=== PATIENT | male | born 2000 | race Caucasian/White ===

== ENCOUNTER 2024-11-06 14:04 | Outpatient (CLI) | payer OTHER, SELFPAY ==
--- NOTE | ~2024-11-06 | MR_ITS ---
MRI of the lumbar spine Clinical History: Back pain Technique: Axial T2-weighted images, and sagittal T1-weighted, T2-weighted, and and T2 fat-sat images were acquired. Findings: There is no fracture or subluxation of the lumbar spine. Vertebral bodies maintain normal height and alignment. No bone marrow signal abnormality seen. At L1-L2, L2-L3, L3-L4, intervertebral discs maintain normal signal and position. No disc bulge or herniation at these levels. No spinal canal stenosis or neural foraminal narrowing at these levels. At L4-L5, there is mild disc desiccation with minimal disc bulge. No spinal canal stenosis or neural foraminal narrowing. At L5-S1, there is no disc bulge or herniation. No spinal canal stenosis or neural foraminal narrowing. Paravertebral soft tissues are unremarkable. Impression: Minimal degenerative spondylitic change at L4-L5, as above. Reviewed, dictated and finalized at [facility]. Impression: Minimal degenerative spondylitic change at L4-L5, as above.
--- OUTSIDE RECORDS SUMMARY | 2024-11-06 14:19 | XMS_ITS | Continuity of Care Document ---
Author Name [facility] Organization [facility] Care Team Providers Care Accounting Manager Controller Name Role Phone [facility] Unavailable Unavailable Allergies, Adverse Reactions, Alerts Combined list of allergies from Department of Defense and Veterans Affairs facilities. It does not include entries that were removed or entered in error. Substance Category Reaction Severity Reaction type Status Date Reported Comments Source No Known Allergies Drug allergy (disorder) active 06/02/2020 Aaron GALLEGOS [facility] Immunizations Combined list of available immunizations from the Department of Defense and Veterans Affairs facilities. Immunization Series Date Given Administered By Site Reaction Lot Number CVX Code Drug Powdered Metal Supervisor Status Comments Source COVID-19, mRNA, LNP-S, PF, 30 mcg/0.3 mL dose 2020 [employer] [place] (PFR) Not Given COVID-19, mRNA, LNP-S, PF, 30 mcg/0.3 mL dose DoD COVID-19, mRNA, LNP-S, PF, 30 mcg/0.3 mL dose 2020 [employer] [place] (PFR) Not Given COVID-19, mRNA, LNP-S, PF, 30 mcg/0.3 mL dose DoD hepatitis B vaccine, adult dosage 1 2020 JACINTO EMANUEL I [id number] [employer] (SKB) complet ed hepatitis B vaccine, adult dosage DoD Influenza, injectable, quadrivalent, preservative free 1 2019 CORI MACIEL [id number] 150 Seqirus (SEQ) complet ed Influenza , injectabl e, quadrival ent, preservat dominique free DoD measles, mumps and rubella virus vaccine 1 2019 UNK 03 Unknown (UNK) Not Given measles, mumps and rubella virus vaccine DoD hepatitis A vaccine, adult dosage 1 2019 UNK 52 Unknown (UNK) Not Given hepatitis A vaccine, adult dosage DoD Encounters Combined list of: 1) Encounters from Department of Veterans Affairs facilities going backup to the last 18 months, not all VA inpatient encounters are included; 2) Encounters from the Department of Defense facilities going backup to 280 months. Location Location Details Encounter Type Encounter Number Reason For Visit Attending Provider ADM Date DC Date Status Disposition Source [facility](IEP Primary Care) OUTPATIENT [id number] covid test FLORIAN CORNELIUS 10/21 Released w/o Limitations [facility](I EP Primary Care) [facility](IEP Optometry ) OUTPATIENT [id number] VALERIA BYRD 10/22 Released w/o Limitations [facility](I EP Optomet ry) [facility]) OUTPATIENT [id number] D 4 2-39 B Lower Leg EMILIANO HAQUELEE 12/03 Released with Work/Duty Limitations [facility](T [facility] Physica l Therapy ) [facility](IEP Primary Care) OUTPATIENT [id number] Notes Entered by: ROHAN COOPER 09 Feb 2020 0949 ------- ------- ------- ------- -- IET MONET MADRID 02/08 Released w/o Limitations [facility](I EP Primary Care) JULIO James(ME Student [facility]) OUTPATIENT [id number] BRIANDA QUINTANILLA 06/02 Released w/o Limitations JULIO Vital(ME [facility]) [facility](IEP Primary Care) OUTPATIENT [id number] Notes Entered by: Tammy GUAMAN 29 Jun 2020 0822 ------- ------- ------- ------- -- DEF JOHANNE RUIZ 06/29 Released w/o Limitations [facility](I EP Primary Care) Procedures Combined list of: 1) Procedures from Department of Veterans Affairs facilities going back up to thelast 18 months, not all VA non-surgical procedures are included; 2) All procedures from the Department of Defense facilities. Procedure Procedure Type Code Date Perfomer Comments [facility] e Immunization Administration One Vaccine Immunization Administration One Vaccine 10476 BRIANDA HOPSON [facility] Ophthalmological New Patient Start Intermediate Level Care Ophthalmological New Patient Start Intermediate Level Care 54374 PRUE [facility] Fitting Monofocals (Not For Aphakia) [facility] Fitting Monofocals (Not For Aphakia) 63874 PRUE MEGHA I [facility] Determination Of Refractive State Determination Of Refractive State 08408 [facility] Physical Therapy Education Orthotics Training Physical Therapy Education Orthotics Training 35261 [facility] Foot, arch support, removable, premolded, longitudinal, each [facility] Immunization Administration Each Additional Vaccine Immunization Administration Each Additional Vaccine 49701 [facility] Vaccines Viral Polio, Inactivated (Salk) Vaccines Viral Polio, Inactivated (Salk) 20845 [facility] Vaccines Viral Varicella (Active) Vaccines Viral Varicella (Active) 15505 [facility] Immunization Admin Intranasal / Oral Each Additional Vaccine Immunization Admin Intranasal / Oral Each Additional Vaccine 24160 [facility] Vaccines Adenovirus Type 4 Live, For Oral Use Vaccines Adenovirus Type 4 Live, For Oral Use 11107 [facility] Vaccines Adenovirus Type 7 Live, For Oral Use Vaccines Adenovirus Type 7 Live, For Oral Use 73145 [facility] Tdap Vaccine Tdap Vaccine 71381 [facility] BRIEF EMOTIONAL/BEHAVIORAL ASSESSMENT (EG, DEPRESSION INVENTORY, ATTENTION-DEFICIT/HYP ERACTIVITY DISORDER [ADHD] SCALE), WITH SCORING AND DOCUMENTATION, PER STANDARDIZED INSTRUMENT 1 [facility] VARICELLA VIRUS VACCINE (RAMYA), LIVE, FOR SUBCUTANEOUS USE 1 [facility] TETANUS, DIPHTHERIA TOXOIDS AND ACELLULAR PERTUSSIS VACCINE (TDAP), WHEN ADMINISTERED TO INDIVIDUALS 7 YEARS OR OLDER, FOR INTRAMUSCULAR USE 0 [facility] FOOT, ARCH SUPPORT, REMOVABLE, PREMOLDED, LONGITUDINAL, EACH 0 [facility] DETERMINATION OF REFRACTIVE STATE 0 [facility] HEARING SERVICE, MISCELLANEOUS 0 DoD Social History Combined list of available smoking, tobacco, and other social history from Department of Defense and Veterans Affairs facilities. Social History Type Response Date Comment [facility] e This section is an empty social history section. DoD
--- OUTSIDE RECORDS SUMMARY | 2024-11-06 14:21 | XMS_ITS | Clinical Summary ---
Author Organization [employer] [facility] Address [address] [place] [address] Care Team Providers Care Technology Auditor Name Role Phone Unavailable Primary Care Provider Unavailabl e Medications predniSONE (DELTASONE) 20 mg tablet Take 1 tablet by mouth twice daily. 10 Tablet 12/14/2022 5:34 PM CDT 12/14/2022 Active triamcinolone acetonide (KENALOG) 0.1 % Cream Apply to the affected area twice daily as needed, do not use more than 14 days in a row. 30 Gram 12/14/2022 5:34 PM CDT 12/14/2022 Active Social History Tobacco Use Types Packs/Day Years Used Date Smoking Tobacco: Never Assessed Sex and Gender Information Value Date Recorded Sex Assigned at Not on file Legal Sex Male 5:09 PM CDT Gender Identity Not on file Sexual Orientation Not on file Plan of Treatment Health Maintenance Due Date Last Done Comments HPV VACCINES (1 - Male 3-dose series) 2016 DTAP/TDAP/TD VACCINES (1 - Tdap) 2020 HEPATITIS B VACCINES (1 of 3 - 19+ 3-dose series) 07/17 INFLUENZA VACCINE (#1) 2024 Insurance RX [employer] RX Member Subscriber Plan / Payer (Ef fective for All Dates) Name:Corona, Chad Relation to Subscriber:Self Name:ChloeChad Payer ID:Not on file Group ID:[id number] Type:RX Commercial Address: [address]
--- OUTSIDE RECORDS SUMMARY | 2024-11-06 14:21 | XMS_ITS | Clinical Summary ---
Author Organization [facility] Address [address] [place] [address] Care Team Providers Care Job Training Supervisor Name Role Phone Chay Oliveira MD Primary Care Provider [phone] Allergies No known active allergies Medications gabapentin (NEURONTIN) 100 MG capsule 1 (one) capsule by mouth three times daily, as needed 11/03/2024 Active HYDROcodone-gutierrez taminophen (NORCO) 10-325 MG tablet 1 (one) tablet by mouth three times daily, as needed 11/03/2024 Active tiZANidine (ZANAFLEX) 4 MG tablet 1 (one) tablet by mouth at bedtime 11/03/2024 Active methylPREDNISol one, DIPTI, (MEDROL DOSEPAK) 4 MG tablet TAKE TABLETS DIRECTED ON INSIDE OF THIS PACKAGE 11/03/2024 Active lidocaine 4 % patch Place 1 patch onto the skin daily. 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 Overview (01/04/2021): Added automatically from request for surgery [id number] Encounters Date Type Department Care Team Description 11/04/2024 5:34 PM CDT - 11/04/2024 6:43 PM CDT Emergency [facility] [address] [place] [address] Gil Recio MD Back Pain Discharge Disposition: Home or Self Care (Routine Discharge) 11/04/2024 Travel from Last 3 Months Social History Tobacco Use Types Packs/Day Years Used Date Smoking Tobacco: Never Smokeless Tobacco: Never Alcohol Use Standard Drinks/Week Comments Never 0 (1 standard drink = 0.6 oz pur e alcohol) Sex and Gender Information Value Date Recorded Sex Assigned at Male 11/04/2024 5:53 PM CDT Legal Sex Male 5:55 PM VIDEO GAME DEVELOPER Gender Identity Not on file Sexual Orientation Not on file Last Filed Vital Signs Vital Sign Reading Time Taken Comments Blood Pressure 138/90 11/04/2024 6:37 PM CDT Pulse 98 11/04/2024 5:39 PM CDT Temperature 36.5 C (97.7 F) 11/04/2024 5:39 PM CDT Respiratory Rate 20 11/04/2024 6:37 PM CDT Oxygen Saturation 97% 11/04/2024 6:40 PM CDT Inhaled Oxygen Concentration - - Weight 114.8 kg (253 lb) 11/04/2024 5:39 PM CDT Height 177.8 cm (5' 10) 11/04/2024 5:39 PM CDT Body Mass Index 36.3 11/04/2024 5:39 PM CDT Plan of Treatment Health Maintenance Due Date Last Done Comments Annual Physical 2004 DTaP, Tdap and Td Vaccines (6 - Tdap) 2012 10/19/2006, 09/04/2003, 02/04/2002, Additional history exists Meningococcal B Vaccine (1 of 2 - Standard) 2017 HPV Vaccines (2 - Male 3-dose series) 01/13/2019 12/16/2018 Hepatitis C 08/01/2019 Hepatitis B Vaccines (1 of 3 - 19+ 3-dose series) 2020 COVID-19 Vaccine (3 - season) 2023 08/26/2020, 08/05/2020 Meningococcal Vaccine Completed 12/16/2018, 015 Pneumococcal Vaccine: Pediatrics (0 to 5 Years) and At-Risk Patients (6 to 49 Years) Aged Out No longer eligible based on patient's age to complete this topic RSV Immunizations Under 20 Months Aged Out No longer eligible based on patient's [place] [id number] [employer] Care Teams Job Training Supervisor Relationship Specialty Start Date End Date Chay Oliveira MD [address] [place] [phone] PCP - General FAMILY PRACTICE 11/30/20
== END 2024-11-06 14:05 | disposition home or self-care (01) ==
LOC: CHSIMG 14:09
PROVIDERS: PCP Family Medicine; Visit Provider Family Medicine
DX: M54.50 Low back pain, unspecified (principal)
CPT/HCPCS: 72148

== ENCOUNTER 2024-11-11 08:29 | Outpatient (RCR) | payer OTHER, SELFPAY ==
--- NOTE | 2024-11-11 11:06 | PTOPEVAL1 ---
Assessment and note entered by Dunia Pollard DPT Evaluation Information Assessment Status Evaluation Diagnosis low back pain ICD-10 Condition Codes (PT) Pain in low back M54.50 Onset 11/06/24 Subjective Information Patient reports about 4 years ago he bent down to grab something and felt a pop in his back. He reports he has a bulging disc. He states that he has done PT in the past and has felt some relief. He reports that pain is across the low back and into B anterior hips. He reports that pain is worse with ambulating prolonged distances, getting into and out of the car, lifting objects and sleeping. He reports his goal is to decrease pain Reported Pain Level Pain Score 6: Self Report Assessment PT Clinical Summary Mr. Corona is a 24 year old male who presents to PT with low back and B hip pain. He demonstrates pain with lumbar ROM, decreased core strength and pain completing ambulation, house hold tasks and sleeping. He would benefit from skilled PT to address impairments and return to PLOF. Plan of Care Interventions Electrical Stimulation,Gait Training,Hot Pack/Cold Pack,Manual Therapy,Mechanical Traction,Patient/ Caregiver Education,Therapeutic Activities, Therapeutic Exercise PT Services Indicated Yes Treatment Frequency and 2x weekly for 10 visits Duration These treatments will address the objective and functional deficits as defined above. The patient will be advanced safely and appropriately in order for the patient to progress towards his/her prior level of function. Additional exercises will be introduced and as well as a comprehensive home exercise program upon discharge, if needed, ?to ensure carryover of functional gains achieved in the clinic. This treatment plan has been reviewed and agreement upon by the patient.
--- NOTE | 2024-12-18 10:17 | OPREHPOC ---
Outpatient Therapy Plan of Care This is a Multidisciplinary Plan of Care that may contain components documented by all disciplines (PT, OT, and ST.) PT Problem 1 PT Problem #1 Knowledge Deficit PT Goal 1 Goal / Goal Update Patient to demonstrate independence with HEP Target Visit 5 Progress Met PT Problem 2 PT Problem #2 Pain PT Goal 1 Goal / Goal Update 1. Patient to report highest pain at 2/10 Target Visit 10 Progress Not Met PT Problem 3 PT Problem #3 Impaired Strength PT Goal 1 Goal / Goal Update Patient to demonstrate 4+/5 core strength to return to lifting and completing house hold tasks at PLOF Target Visit 10 Progress Not Met PT Problem 4 PT Problem #4 Impaired Functional Mobility PT Goal 1 Goal / Goal Update 1. Patient to improve BackIndex by 20% 2. Patient to ambulate >30 minutes with no increase in back pain 3. Patient to demonstrate ability to lift 25# from floor to waist without increase in back pain Target Visit 10 Progress Not Met
--- NOTE | 2024-12-18 10:17 | PTOPDC ---
Assessment and note entered by Kandis Rosario, PT Evaluation Information Assessment Status Discharge Diagnosis low back pain ICD-10 Condition Codes (PT) Pain in low back M54.50 Onset 11/06/24 Subjective Information Pt reports feeling like PT hasn't helped. He got injections in his lower back (6 total) last week and feels like since getting them his pain has worsened. He states his pain is back to baseline levels around 4/10. He states he has a follow up next week to potentially get set up for an epidural injection. He continues to experience pain when in standing and ambulating, and he cannot stand more than 30 minutes at a time. He has continued to do his exercises at home and would like to keep trying on his own and discontinue therapy at this time. Reported Pain Level Pain Score 4: Self Report Assessment PT Clinical Summary Mr. Corona has attended 10 skilled PT visits for chronic LBP. Since beginning therapy he continues to have pain and has made little progress toward therapeutic goals addressing standing/walking tolerance and abdominal strength. He had recent injections and is following up with MD for an epidural injection this week. Due to lack of progress he will be discharged from skilled PT this date with [facility] to continue his HEP and continue following up with MD and pain management. Plan of Care PT Services Indicated No
== END 2024-12-18 13:45 | disposition home or self-care (01) ==
LOC: CHSPT 08:29
PROVIDERS: PCP Family Medicine; Visit Provider Family Medicine
DX: M54.50 Low back pain, unspecified (principal)
CPT/HCPCS: 97014; 97110; 97112; 97140; 97150; 97161; G0283